=== PATIENT | male | born 1970 | race African-American/Black ===

== ENCOUNTER 2021-06-16 23:41 | Emergency (ER) | payer SELFPAY ==
[2021-06-16 23:45] VITALS: BP 144/102; PULSE 75; RESP 18; TEMP 36.1; O2SAT 99
--- NOTE | 2021-06-17 00:44 | PC.NURSE ---
Pt reports to this RN that nose bleed has stopped. Pt no longer wants to be seen by provider. Pt ambulates out of ED with steady gait.
== END 2021-06-17 00:44 | disposition left against medical advice (07) ==
LOC: ANHED 06-17 00:47
PROVIDERS: PCP Internal Medicine Geriatric Medicine
DX: R04.0 Epistaxis (principal)
CPT/HCPCS: 99199